=== PATIENT | male | born 1980 | race Caucasian/White ===

== ENCOUNTER → 2016-10-03 13:44 | Emergency (ER) | payer SELFPAY ==
[~2016-10-03 13:44] MED LIST: Ketorolac INJ* 60 MG/2 ML VIAL IM ONE
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
[2016-10-03 14:51] VITALS: BP 118/65
== END | disposition home or self-care (01) ==
LOC: ED 13:44
DX: S16.1XXA Strain of muscle, fascia and tendon at neck level, initial encounter (principal); V49.9XXA Car occupant (driver) (passenger) injured in unspecified traffic accident, initial encounter; Y93.9 Activity, unspecified; Y92.9 Unspecified place or not applicable
CPT/HCPCS: 96372; 99281; J1885